=== PATIENT | male | born 1970 | race Caucasian/White ===

== ENCOUNTER → 2023-06-14 07:03 | Outpatient (CLI) | payer BC, SELFPAY ==
--- NOTE | 2023-06-14 | DI.MRI.S_ITS ---
PROCEDURE: MR CERVICAL SPINE WO CON INDICATIONS: ALTERED CONCIOUSNESS;RIGHT ARM NUBNESS LB PAIN TECHNIQUE: Noncontrast sagittal T1 spin echo and T2 fast spin echo, sagittal STIR, foraminal oblique sagittal T2 fast spin echo, and axial gradient echo or T2 fast spin echo through the cervical spine. COMPARISON: None. FINDINGS: Image quality: Motion degraded. Alignment and Curvature: Straightening of normal cervical lordosis. Bone Marrow: Marrow demonstrates normal overall signal. Spinal Cord: Visualized spinal cord has normal size and signal. No cerebellar tonsillar herniation. Paraspinous Soft Tissues: No paravertebral masses. Prevertebral soft tissues are normal in thickness. C2-C3: Disc desiccation. Mild posterior disc osteophyte complex. No central canal stenosis. Facet and uncovertebral arthropathy. Moderate left and mild right neural foraminal stenosis. C3-C4: Disc desiccation height loss. Posterior disc osteophyte complex abutting the ventral cord. Mild central canal stenosis. Facet and uncovertebral arthropathy. Severe left and moderate right neural foraminal stenosis. C4-C5: Disc desiccation and height loss. Right subarticular and foraminal disc protrusion abutting the ventral cord. Mild central canal stenosis. Facet and uncovertebral arthropathy. Severe right and moderate left neural foraminal stenosis. C5-C6: Disc desiccation and height loss. Posterior disc osteophyte complex abutting ventral cord with mild mass effect. Moderate central canal stenosis. Facet uncovertebral arthropathy. Severe bilateral neural foraminal stenosis. C6-C7: Disc desiccation height loss. Posterior disc osteophyte complex. Mild central canal stenosis. Facet and uncovertebral arthropathy. Severe bilateral neural foraminal stenosis. C7-T1: Dictated this case horne. No central canal stenosis. Facet and uncovertebral arthropathy. Moderate right and mild left neural foraminal stenosis. IMPRESSION: 1. Multilevel degenerative changes of the cervical spine as described above. 2. Moderate central canal stenosis at C5-C6. Mild multilevel central canal stenosis. 3. Multilevel neural foraminal stenosis, severe on the left at C3-C4, severe on the right at C4-C5, severe bilaterally at C5-C6 and C6-C7. Dictated by: Vipul Santiago M.D. on 06/14/2023 at 9:27 Approved by: Vipul Santiago M.D. on 06/14/2023 at 9:35
--- NOTE | 2023-06-14 | DI.MRI.S_ITS ---
PROCEDURE: MR HEAD/BRAIN WO CON INDICATIONS: ALTERED CONCIOUSNESS;RIGHT ARM NUBNESS LB PAIN TECHNIQUE: Noncontrast axial T1 spin echo, axial T2 fast spin echo, sagittal and axial FLAIR, coronal T2 fast spin echo, axial gradient echo, axial diffusion and ADC through the brain. COMPARISON: None. FINDINGS: Image quality: Excellent. CSF Spaces: Basal cisterns are patent. No extra-axial fluid collections. Ventricles are normal in size and shape. Brain: No intracranial masses or hemorrhage. Jacobson/white matter interface is normal. Brainstem appears normal. There are a few T2/FLAIR hyperintensities within the deep and periventricular white matter, nonspecific and likely representing mild chronic microvascular ischemic changes. Mild age-related global volume loss. Diffusion-weighted images demonstrate no acute ischemic insult. No chronic ischemic insults. Normal intravascular flow voids are present. Skull and face: Calvarium has normal marrow signal. Orbits appear normal. Sinuses: Mild paranasal sinus mucosal thickening. Large left maxillary sinus mucous retention cyst. Small right maxillary sinus mucous retention cyst. Left mastoid effusion. IMPRESSION: 1. No cause for patient's symptoms is identified. 2. No acute intracranial abnormalities. 3. Mild age-related global volume loss and minimal chronic microvascular ischemic changes. Dictated by: Vipul Santiago M.D. on 06/14/2023 at 9:17 Approved by: Vipul Santiago M.D. on 06/14/2023 at 9:19
--- NOTE | 2023-06-14 | DI.MRI.S_ITS ---
PROCEDURE: MR LUMBAR SPINE WO CON INDICATIONS: ALTERED CONCIOUSNESS;RIGHT ARM NUBNESS LB PAIN TECHNIQUE: Noncontrast sagittal T1 spin echo and T2 fast echo, sagittal STIR, and T2 fast spin echo through the lumbar spine. In cases with scoliosis, additional coronal T2 fast spin echo may be performed. COMPARISON: None. FINDINGS: Image quality: Excellent. Alignment and Curvature: Straightening of the normal lumbar lordosis. No spondylolisthesis. Bone Marrow: Marrow is of normal overall signal. No acute vertebral body compression fractures. Spinal Cord: Conus medullaris terminates at the T12-L1 level. Visualized cord demonstrates normal signal and size. Paraspinous Soft Tissues: No paravertebral masses. T12-L1: Minimal disc bulge. Mild facet arthropathy. No central canal or neural foraminal stenosis. L1-L2: No central canal or neural foraminal stenosis. L2-L3: Mild facet arthropathy and thickening of the ligamentum flavum. Epidural lipomatosis. No central canal or neural foraminal stenosis. L3-L4: Mild facet arthropathy and thickening of the ligamentum flavum. Epidural lipomatosis. No central canal or neural foraminal stenosis. L4-L5: Disc desiccation height loss. Diffuse disc bulge. Facet arthropathy. No central canal stenosis. Mild bilateral neural foraminal stenosis. L5-S1: Disc desiccation height loss. Posterior disc bulge. Annular tearing. No central canal stenosis. Facet arthropathy. Severe bilateral neural foraminal stenosis. IMPRESSION: 1. Multilevel degenerative changes of the lumbar spine as described above. 2. There is no significant central canal stenosis. 3. Severe bilateral neural foraminal stenosis at L5-S1. Mild bilateral neural foraminal stenosis at L4-5. Dictated by: Vipul Santiago M.D. on 06/14/2023 at 9:20 Approved by: Vipul Santiago M.D. on 06/14/2023 at 9:27
== END ==
PROVIDERS: PCP Family Medicine; Referring Provider Psychiatry & Neurology Neurology; Visit Provider Psychiatry & Neurology Neurology
DX: R40.4 Transient alteration of awareness (principal); R20.0 Anesthesia of skin; R20.2 Paresthesia of skin; M47.812 Spondylosis without myelopathy or radiculopathy, cervical region; M48.02 Spinal stenosis, cervical region; M47.816 Spondylosis without myelopathy or radiculopathy, lumbar region; M47.817 Spondylosis without myelopathy or radiculopathy, lumbosacral region; M54.42 Lumbago with sciatica, left side; M54.41 Lumbago with sciatica, right side; M48.061 Spinal stenosis, lumbar region without neurogenic claudication; M48.07 Spinal stenosis, lumbosacral region; G89.29 Other chronic pain
CPT/HCPCS: 70551; 72141; 72148